=== PATIENT | female | born 1945 | race Caucasian/White ===

== ENCOUNTER → 2018-02-25 13:33 | Outpatient (CLI) | payer MEDICARE, BC, SELFPAY ==
--- NOTE | 2018-02-25 | DI.RAD.S_ITS ---
PROCEDURE: FL ARTHROGRAM SHOULDER LT INDICATIONS: LEFT SHOULDER PAIN TECHNIQUE: The indications, alternatives, benefits, risks, and complications of the procedure were explained to the patient. Written informed consent was obtained and placed in the chart. The shoulder was examined fluoroscopically and a site for needle placement chosen for entry into the glenohumeral joint from an anterior approach. The skin was prepped and draped in a sterile fashion, and 1% lidocaine infiltrated from skin down to joint capsule. A spinal needle was inserted into the glenohumeral joint, and a small amount of iodinated contrast media injected to confirm intra-articular placement of the needle tip. This was followed by approximately 12 mL dilute solution of a gadolinium containing MR contrast agent. The needle was removed and a dressing was applied. The patient was given postprocedural instructions and sent to the MR suite for MR imaging. FINDINGS: A single fluoroscopic spot image demonstrates intra-articular location of injected iodinated contrast. IMPRESSION: Successful fluoroscopically guided administration of dilute Gadolinium solution into the shoulder joint for MR arthrogram. It is noted that the humeral head is impacted and eroded. Prior trauma may explain this appearance. Dictated by: George Bryan M.D. on 02/25/2018 at 15:14 Approved by: George Bryan M.D. on 02/25/2018 at 15:15
--- NOTE | 2018-02-25 | DI.MRI.S_ITS ---
PROCEDURE: MR SHOULDER LT W CON INDICATIONS: Chronic left shoulder pain. The patient reports trauma to the left shoulder approximately 6 years ago from lifting injury (airplane door), and thereafter additional blunt trauma to the left shoulder approximately 2 years ago. She has not had plain film imaging of the shoulder over that period of time. There is, however, the MR shoulder evaluation by MR scanning 07/26/11. TECHNIQUE: After the administration of 12 mL of dilute intra-articular Gadolinium contrast, oblique coronal T1 and T2 spin echo with fat saturation, oblique sagittal T1 spin echo with and without fat saturation, oblique sagittal T2 fast spin echo with fat saturation, axial T1 spin echo with fat saturation through the shoulder. COMPARISON: [facility], , UP EXT [facility], 07[facility]26/2011[facility] 9:50[facility], 10:16. [facility], RF, FL ARTHROGRAM SHOULDER LT, 02/25/2018, 13:59. [facility], , SHOULDER INJECTION FOR MR/CT, 07/26/2011, 9:53. FINDINGS: Image quality: Excellent. Rotator cuff: The infraspinatus and subscapularis tendons appear intact throughout, but there is a lateral supraspinatus full-thickness rotator cuff tear without retraction of the supraspinatus muscle medially. This allows extravasation of injected intra-articular contrast into the overlying subacromial/subdeltoid bursal space. No rotator cuff muscle atrophy on sagittal images. Bones and bursae: There is a new finding of a impacted humeral head fracture, with underlying marrow space edema. This was not present during the 2011 MRI that was performed after the lifting injury discussed above in the indication section. Rather, this has occurred subsequently and likely during the blunt trauma reported 2 years ago. Reactive marrow edema is the likely cause for the current edema associated with degenerative osteoarthritic change at the glenohumeral joint and the altered morphology of the humeral head along its articular surfaces. There has been interval worsening of the acromioclavicular joint degeneration, now moderately severe, but with only mild impingement against the supraspinatus portion of the rotator cuff.. The acromion demonstrates conventional anatomy, without an os acromiale. Capsule and soft tissues: The labrum and glenohumeral ligaments appear intact. The long head of the biceps tendon demonstrates normal location and morphology. The rotator interval appears normal, without fibrosis. The coracohumeral ligament is of normal thickness. No intra-articular bodies. IMPRESSION: Humeral head impaction fracture does occurred, subsequent to the prior MRI, presumably related to the blunt trauma reported by the patient approximately 2 years ago. The marrow space edema involving the humeral head and neck is likely secondary to moderately severe post traumatic degenerative osteoarthritis, given her statement that no recent trauma has occurred. There is at least one small supraspinatus full-thickness rotator cuff tear allowing extravasation of injected contrast from the joint space into the overlying subacromial/subdeltoid bursal space. Mild interval worsening of previously present moderate a.c. joint osteoarthritis. Only mild impingement against the normal course of the supraspinatus tendon is noted. Supraspinatus rotator cuff tear is not associated with supraspinatus atrophy or retraction. Dictated by: George Bryan M.D. on 02/25/2018 at 15:15 Approved by: George Bryan M.D. on 02/25/2018 at 15:40
== END ==
PROVIDERS: Family Provider Family Medicine; Visit Provider Family Medicine
DX: M25.512 Pain in left shoulder (principal); G89.29 Other chronic pain; M19.012 Primary osteoarthritis, left shoulder; M75.42 Impingement syndrome of left shoulder; S42.292S Other displaced fracture of upper end of left humerus, sequela; S46.012S Strain of muscle(s) and tendon(s) of the rotator cuff of left shoulder, sequela
CPT/HCPCS: 73040; 73222; 77002

== ENCOUNTER → 2018-04-18 10:44 | Outpatient (CLI) | payer MEDICARE, BC, SELFPAY ==
--- NOTE | 2018-04-18 | DI.RAD.S_ITS ---
PROCEDURE: XR CHEST 2V INDICATIONS: COUGH TECHNIQUE: 2 views of the chest were acquired. COMPARISON: [facility], , CHEST 2 VIEW, 06/09/2008, 10:16. FINDINGS: Surgical changes and devices: None. Lungs and pleura: No pleural effusions or pneumothorax. Lungs are clear. Mediastinum: Mediastinal contours are normal. Heart size is normal. Bones and chest wall: No suspicious bony abnormalities. Soft tissues appear unremarkable. IMPRESSION: No acute cardiopulmonary disease. Dictated by: David Sands [facility] Interpreted: Aidee Musa MD on 04/18/2018 at 13:11 Approved by: Aidee Musa MD, PhD on 04/18/2018 at 14:47
== END ==
PROVIDERS: Family Provider Family Medicine; PCP Family Medicine; Visit Provider Family Medicine
DX: R05 Cough (principal)
CPT/HCPCS: 71046

== ENCOUNTER 2018-05-16 11:32 | Day surgery (SDC) | payer MEDICARE, BC, SELFPAY ==
[2018-05-16 12:04] VITALS: BP 87/56; PULSE 66; RESP 15; TEMP 36.1; O2SAT 97; BMI 26.5
--- NOTE | 2018-05-16 12:05 | PM.PREOP ---
Pre-operative Note Interval Note Pre-op Check: Yes History & Physical Reviewed by Physician and Yes Exam Performed Changes: No ASA Class (for procedural sedation): II
[2018-05-16] MEDS: SODIUM CHLORIDE 0.9% 1,000 ML 200 ML IV (12:10)
--- NOTE | 2018-05-16 12:10 | SUR.PREOP ---
pt brought in her own fleets enema, per v.o. dr. erendira cr for nurse to administer to patient at 1210
[2018-05-16] MEDS: MIDAZOLAM 5 MG/5 ML VIAL IV (12:56)
[2018-05-16] MEDS: fentaNYL 250 MCG/5 ML INJ IV (12:56)
--- NOTE | 2018-05-16 13:11 | PM.OP.ENDO ---
Operative Date/Time/Diagnoses Date of procedure: 05/16/18 Time of procedure: 13:11 Pre-op diagnosis: Rectal bleeding bright red Post-op diagnosis: same (Internal hemorrhoids. Sigmoid diverticulosis.) Procedure & Clinicians Study performed: Flexible sigmoidoscopy with 3 column hemorrhoid banding Same procedure as scheduled: Yes Indications: Blood per rectum. Patient had a recent colonoscopy. Therefore complete colonic exam was not performed. Surgeon: Ander Cunha Procedure Notes SCOAP/Timeout: Performed Procedure in detail: The patient was placed left lateral decubitus position underwent IV sedation directed by the surgeon consisting fentanyl and Versed cautiously applied. Digital exam was unremarkable. The scope was inserted advanced through it into the rectum and sigmoid. I reached the depth of 60 cm from the anal verge. I encountered formed stool at that point. Scope was gradually brought out. Patient was noted to have occasional diverticulosis of the sigmoid colon. On slowly pulling through the anal verge there were obvious hemorrhoids. Anoscope was inserted and circumferential exam perform. I chose the band 3 columns of hemorrhoids. One was in the left lateral 1 was a just adjacent to that toward the posterior midline and the 3rd was in the right posterior lateral location. The anoscope was removed the patient appeared to tolerate the procedure well. Scope withdrawal time: Not applicable Sedation minutes: 21 Findings: diverticulosis and internal hemorrhoids Specimen(s): none sent Complications: none Recommendations: Colonscopy in 3 years Follow up: as needed Disposition: PACU
[2018-05-16 13:12] VITALS: BP 97/58; PULSE 50; RESP 14; TEMP 36.2
[2018-05-16 13:29] VITALS: BP 95/63; PULSE 52; RESP 14; O2SAT 96
[2018-05-16 14:05] VITALS: BP 100/60; PULSE 58; RESP 16; TEMP 36.2; O2SAT 98
== END 2018-05-16 14:30 | disposition home or self-care (01) ==
PROVIDERS: Family Provider Family Medicine; PCP Family Medicine; Visit Provider Specialist
PROC: 0DJD8ZZ Inspection of Lower Intestinal Tract, Via Natural or Artificial Opening Endoscopic (ICD-10-PCS; CPT 45378; principal; 2018-05-16 12:45)
DX: K64.8 Other hemorrhoids (principal); K57.30 Diverticulosis of large intestine without perforation or abscess without bleeding; E78.00 Pure hypercholesterolemia, unspecified
CPT/HCPCS: 46221; J2250; J3010

== ENCOUNTER → 2019-03-24 15:33 | Outpatient (CLI) | payer MEDICARE, BC, SELFPAY ==
--- NOTE | 2019-03-24 | DI.CT.S_ITS ---
PROCEDURE: CT ABDOMEN PELVIS W CON INDICATIONS: Other specified symptoms and signs involving the abdomen and pelvis. Clinical history indicates a need to evaluate for abdominal or pelvic mass lesion. Signs and symptoms relative to the current clinical condition is new onset over the last 2 months a symptomatology suggestive of underlying mass. TECHNIQUE: After the administration of oral and intravenous contrast, 5 mm thick sections acquired from the diaphragms to the symphysis. 5 mm thick coronal and sagittal reformats were performed. For radiation dose reduction, the following was used: automated exposure control, adjustment of mA and/or kV according to patient size. COMPARISON: None. FINDINGS: Image quality: Excellent. ABDOMEN: Lung bases: Lung bases are clear. Heart size is normal. There is a moderately large hiatal hernia behind the heart without associated mass. Solid organs: Liver is normal in size and enhancement. Gallbladder is contracted, without evidence of internal calculus or inflammation.. Biliary system is non-dilated. Pancreas enhances normally. Spleen is normal in size and enhancement. No adrenal nodules. Kidneys are normal in size and enhancement, without hydronephrosis. Peritoneum and bowel: Stomach, small bowel, and colon loops are generally normal in caliber and wall thickness. There is, however, moderate colonic obstipation greater on the right than the left. Additionally, a segment of small bowel at the left midabdomen shows concentric mural thickening up to 1.3 cm through approximately a 15 cm length of small bowel, but without adjacent edema in the root of the mesentery or adenopathy elsewhere. No free fluid or air. Nodes and vessels: No retroperitoneal or mesenteric adenopathy. Aorta and inferior vena cava are normal in caliber. Miscellaneous: No ventral hernias. PELVIS: Genitourinary: Bladder wall thickness is normal. Miscellaneous: No inguinal hernias or adenopathy. Bones: No suspicious bony lesions. No vertebral body compression fractures. IMPRESSION: 1. Adenopathy is not found. A discrete pelvic mass is not identified. There is no sign of peritoneal carcinomatosis or ascites. 2. Colonic obstipation is present greater on the right than the left, a relatively nonspecific finding. A colonic mass lesion as cause of this finding is not identified. 3. There is a estimated 15 cm length segment of small bowel showing concentric mural thickening of the small bowel wall at the left midabdomen. This contains oral contrast through its lumen, and is not associated with abnormal distention of small bowel either proximal or distal to this loop. The appearance is unusual, unexpected, but can be produced by a persistent contraction through a segment of small bowel at time of CT scanning. If unusual symptoms persist this area could be further assessed by repeat CT scanning, or by small bowel follow-through examination with targeted imaging directed to that area. Physical examination assessment exactly to that area is also recommended. An alternative source of such an appearance would be adult onset Crohn's disease with segmental small bowel inflammatory change. Dictated by: George Bryan M.D. on 03/24/2019 at 17:41 Approved by: George Bryan M.D. on 03/24/2019 at 17:48
[2019-03-24 15:57] LABS: Add Manual Diff / Slide Review NO; Basophils Absolute Auto 100 /uL (0-100); Eosinophils Absolute Auto 200 /uL (0-450); Eosinophils Percent Auto 2.7 % (2-4); Hematocrit 40.7 % (36-46); Hemoglobin 13.9 g/dL (12.0-16.0); Lymphocytes Absolute Auto 1300 /uL (1100-4500); Mean Corpuscular HGB Conc 34.2 % (30-36); Mean Corpuscular Hemoglobin 30.2 PG (26-34); Mean Corpuscular Volume 88.4 fL (80-100); Monocytes Absolute Auto 800 /uL (0-900); Monocytes Percent Auto 9.7 % (3-14); Neutrophils Absolute Auto 6200 /uL (1500-7000); Neutrophils Percent Auto 71.6 % (50-75); Platelet Count 231 X10^3/uL (150-400); Red Blood Cell Count 4.61 X10^6/uL (4.0-5.2); Red Cell Distribution Width 14.5 % (11.6-14.8); White Blood Cell Count 8.6 X10^3/uL (4.5-11.0)
[2019-03-24 16:05] LABS: HEMOLYSIS < 15 (0-50); Potassium 4.3 mmol/L (3.4-5.1)
[2019-03-24 16:08] LABS: Alanine Aminotransferase 15 IU/L (9-52); Albumin 4.2 g/dL (3.5-5.0); Albumin Globulin Ratio 1.4 (1.0-2.8); Alkaline Phosphatase 71 U/L (38-126); Aspartate Aminotransferase 25 IU/L (14-36); Bilirubin Total 0.5 mg/dL (0.2-1.3); Blood Urea Nitrogen 24 mg/dL (7-17); Calcium 9.4 mg/dL (8.4-10.2); Carbon Dioxide 33 mmol/L (22-32); Chloride 99 mmol/L (98-107); Estimated Glomerular Filt Rate 43.7 mL/min (>60); Globulin 2.9 g/dL (1.7-4.1); Glucose 74 mg/dL (80-110); Sodium 139 mmol/L (137-145); Total Protein 7.1 g/dL (6.3-8.2)
== END ==
PROVIDERS: Family Provider Family Medicine; PCP Family Medicine; Visit Provider Family Medicine
DX: R19.8 Other specified symptoms and signs involving the digestive system and abdomen (principal); K44.9 Diaphragmatic hernia without obstruction or gangrene; K59.00 Constipation, unspecified
CPT/HCPCS: 36415; 74177; 80053; 85025; Q9967

== ENCOUNTER 2019-07-10 21:33 | Emergency (ER) | payer MEDICARE, SELFPAY ==
[2019-07-10 21:38] VITALS: BP 110/62; PULSE 56; RESP 20; TEMP 36.4; O2SAT 96
--- NOTE | 2019-07-10 21:59 | ED.ABDPAIN ---
HPI - Abdominal Pain General Chief Complaint: Abdominal Pain Stated Complaint: lower right abdominal pain Time Seen by Provider: 07/10/19 21:41 Source: patient Mode of arrival: Ambulatory Limitations: no limitations History of Present Illness HPI narrative: 74-year-old female nonsmoker with noncontributory medical history presents with her son in the chief complaint of a sudden onset right lower quadrant pain in the absence of other symptoms. She was in her normal state of health until this afternoon when she had this sudden onset of pain. She has had no nausea, vomiting or diarrhea. She denies any dysuria, frequency or urgency. She has had no fever or chills. Her pain is worse with motion or palpation and improves with rest. Related Data Home Medications Medication Instructions Recorded Confirmed ascorbic acid (vitamin C) 500 mg mg PO cap 04/23/18 04/23/18 capsule atorvastatin 10 mg tablet 10 mg PO DAILY 04/23/18 04/23/18 cholecalciferol (vitamin D3) 50 2,000 unit PO DAILY 04/23/18 04/23/18 mcg (2,000 unit) capsule diazepam 5 mg tablet 5 mg PO BEDTIME PRN 04/23/18 04/23/18 ferrous sulfate 325 mg (65 mg 325 mg PO DAILY tab 04/23/18 04/23/18 iron) tablet fluoxetine 20 mg capsule 20 mg PO DAILY 04/23/18 04/23/18 omeprazole 20 mg capsule,delayed 20 mg PO BID cap 04/23/18 04/23/18 release triamterene 37.5 1 cap PO DAILY 04/23/18 04/23/18 mg-hydrochlorothiazide 25 mg capsule vitamin B complex 1 tab PO DAILY 04/23/18 04/23/18 losartan 25 mg PO DAILY 05/16/18 05/16/18 Previous Rx's Medication Instructions Recorded diazepam 5 mg PO SEE INSTRUCTIONS PRN #30 05/21/16 atorvastatin [Lipitor] 10 mg PO HS #90 tab 07/03/16 fluoxetine 20 mg PO QDAY #90 cap 07/03/16 gabapentin [Neurontin] 300 mg PO SEE INSTRUCTIONS #1080 07/03/16 cap omeprazole 10 mg PO BID #180 cap 07/03/16 triamterene-hydrochlorothiazid 1 cap PO QDAY #90 cap 07/03/16 [Dyazide] Allergies Allergy/AdvReac Type Severity Reaction Status Date / Time No Known Allergies Allergy Uncoded 04/25/18 09:05 Review of Systems Constitutional Constitutional: Denies chills, Denies fatigue, Denies fever(s), Denies frequent falls, Denies lethargy and Denies weakness Eyes Eyes: Denies change in vision, Denies eye discharge, Denies irritation and Denies loss of vision ENT Ears, Nose, Mouth, and Throat: Denies change in voice, Denies dizziness, Denies neck pain, Denies sore throat and Denies throat swelling Cardiovascular Cardiovascular: Denies chest pain, Denies irregular heart rhythm, Denies lightheadedness, Denies palpitations, Denies dyspnea, Denies dyspnea on exertion and Denies orthopnea Respiratory Respiratory: Denies cough, Denies dyspnea, Denies dyspnea on exertion and Denies wheezing Gastrointestinal Gastrointestinal: Reports abdominal pain, Denies change in bowel habits, Denies diarrhea, Denies nausea and Denies vomiting Genitourinary Genitourinary: Denies hematuria, Denies flank pain, Denies urinary incontinence and Denies urinary urgency Musculoskeletal Musculoskeletal: Denies back pain, Denies muscle weakness, Denies neck pain, Denies numbness and Denies tingling Integumentary/Breasts Skin/Breast: Denies pruritus, Denies erythema, Denies rash and Denies wounds Neurologic Neurologic: Denies behavioral changes, Denies confusion, Denies dizziness, Denies frequent falls, Denies loss of vision, Denies numbness, Denies tingling and Denies weakness Psychiatric Psychiatric: Denies anxiety, Denies behavioral changes, Denies confusion, Denies depression, Denies homicidal ideation and Denies suicidal ideation Endocrine Endocrine: Denies fatigue, Denies flushing and Denies palpitations Hematologic/Lymphatic Hematologic/Lymphatic: Denies easy bruising Allergic/Immunologic Allergic/Immunologic: Denies urticaria, Denies throat swelling and Denies wheezing Patient History Medical History Elevated cholesterol (Chronic) Surgical History History of tonsillectomy Status post hysterectomy Family History Father Heart disease Grandfather Heart disease Mother Mental health problem Father Heart disease Mother Cancer Social History marital status: household members: friend(s) occupational status: unemployed Smoking Status: Never smoker alcohol intake: current substance use type: does not use Smoking Status: Never smoker alcohol intake frequency: holidays/special occasions only Substance Use Type: does not use Exam Narrative Exam Narrative: GENERAL: [74] year old patient appears stated age. Well-nourished, well-developed patient, in mild distress. HEAD: Atraumatic. Normocephalic. EYES: Pupils equal round and reactive. Extraocular motions intact. No scleral icterus. No injection or drainage. ENT: Nose without bleeding, purulent drainage. Throat without erythema, tonsillar hypertrophy or exudate. Airway patent. NECK: Trachea midline. Non tender CARDIOVASCULAR: Regular rate and rhythm without murmurs, gallops, or rubs. RESPIRATORY: Clear to auscultation. Breath sounds equal bilaterally. No wheezes, rales, or rhonchi. GASTROINTESTINAL: Abdomen soft, mild tenderness in the RLQ, no guarding or rebound. , nondistended. No obturator, Rovsing's, psoas or heel tap EXTREMITIES: No edema or joint tenderness. BACK: Nontender without deformity or crepitance. No flank tenderness. NEURO: AOx3. SKIN: No rash or erythema of visible areas Initial Vital Signs Initial Vital Signs: Vital Signs Temperature 97.6 F 07/10/19 21:38 Pulse Rate 56 L 07/10/19 21:38 Respiratory Rate 20 07/10/19 21:38 Blood Pressure 110/62 07/10/19 21:38 Pulse Oximetry 96 07/10/19 21:38 Course Orders Ordered: ED Orders 07/10/19 21:56 EKG-12 Lead Stat 07/10/19 22:01 Complete Blood Count AUTO DIFF Stat Comprehensive Metabolic Panel Stat Lipase Stat Partial Thromboplastin Time Stat Prothrombin Time INR Stat 07/10/19 22:05 Urine Microscopic Stat 07/10/19 22:18 CT abdomen pelvis w con Stat Discontinued Medications Sodium Chloride (Normal Saline 0.9%) 1,000 mls @ 1,000 mls/hr IV BOLUS ONE Stop: 07/10/19 23:56 Last Infusion: 07/11/19 00:15 Dose: 0 mls/hr Documented by: Admin: 07/10/19 23:01 Dose: 1,000 mls/hr Documented by: KELBY Vital Signs Vital signs: Vital Signs - 8 hr 07/10/19 21:38 07/10/19 23:03 07/11/19 00:28 Temperature 97.6 F Pulse Rate 56 L 53 L 54 L Respiratory Rate 20 16 Blood Pressure 110/62 134/60 Blood Pressure [Left Arm] 138/58 L Pulse Oximetry 96 100 95 MDM - Abdominal Pain Lab Data Result diagrams: 07/10/19 22:01 07/10/19 22:01 Labs: Lab Results 07/10/19 07/10/19 07/10/19 Range/Units 22:01 22:01 22:01 WBC 9.1 (4.5-11.0) X10^3/uL RBC 4.74 (4.0-5.2) X10^6/uL Hgb 14.2 (12.0-16.0) g/dL Hct 41.9 (36-46) % MCV 88.5 (80-100) fL MCH 30.0 (26-34) PG MCHC 33.9 (30-36) % RDW 13.9 (11.6-14.8) % Plt Count 256 (150-400) X10^3/uL Neut % (Auto) 71.3 (50-75) % Lymph % (Auto) 16.0 L (25-40) % [place] % (Auto) 9.7 (3-14) % Eos % (Auto) 2.1 (2-4) % Baso % (Auto) 0.9 (0-2) % Neut # (Auto) 6500 (8656-4632) /uL Lymph # (Auto) 1500 (1732-3745) /uL [place] # (Auto) 900 (0-900) /uL Eos # (Auto) 200 (0-450) /uL Baso # (Auto) 100 (0-100) /uL PT 11.1 (10.1-12.7) SECONDS INR 1.0 (0.9-1.3) APTT 38 H (26.4-36.2) SECONDS Sodium 136 L (137-145) mmol/L Potassium 3.8 (3.4-5.1) mmol/L Chloride 98 (98-107) mmol/L Carbon Dioxide 29 (22-32) mmol/L BUN 29 H (7-17) mg/dL Creatinine 1.30 H (0.52-1.04) mg/dL Estimated GFR 39.8 L (>60) mL/min BUN/Creatinine Ratio 22.3 H (6-22) Glucose 98 (80-110) mg/dL Calcium 9.5 (8.4-10.2) mg/dL Total Bilirubin 0.6 (0.2-1.3) mg/dL AST 29 (14-36) IU/L ALT 16 (<35) IU/L Alkaline Phosphatase 81 (38-126) U/L Total Protein 7.4 (6.3-8.2) g/dL Albumin 4.4 (3.5-5.0) g/dL Globulin 3.0 (1.7-4.1) g/dL Albumin/Globulin Ratio 1.5 (1.0-2.8) Lipase 131 (23-300) U/L Urine RBC (0-5/HPF) Urine WBC (0-5/HPF) Ur Squamous Epith Cells (0-5/HPF) Urine Bacteria (None) Ur Culture Indicated? 07/10/19 Range/Units 22:05 WBC (4.5-11.0) X10^3/uL RBC (4.0-5.2) X10^6/uL Hgb (12.0-16.0) g/dL Hct (36-46) % MCV (80-100) fL MCH (26-34) PG MCHC (30-36) % RDW (11.6-14.8) % Plt Count (150-400) X10^3/uL Neut % (Auto) (50-75) % Lymph % (Auto) (25-40) % [place] % (Auto) (3-14) % Eos % (Auto) (2-4) % Baso % (Auto) (0-2) % Neut # (Auto) (4198-7989) /uL Lymph # (Auto) (4816-3474) /uL [place] # (Auto) (0-900) /uL Eos # (Auto) (0-450) /uL Baso # (Auto) (0-100) /uL PT (10.1-12.7) SECONDS INR (0.9-1.3) APTT (26.4-36.2) SECONDS Sodium (137-145) mmol/L Potassium (3.4-5.1) mmol/L Chloride (98-107) mmol/L Carbon Dioxide (22-32) mmol/L BUN (7-17) mg/dL Creatinine (0.52-1.04) mg/dL Estimated GFR (>60) mL/min BUN/Creatinine Ratio (6-22) Glucose (80-110) mg/dL Calcium (8.4-10.2) mg/dL Total Bilirubin (0.2-1.3) mg/dL AST (14-36) IU/L ALT (<35) IU/L Alkaline Phosphatase (38-126) U/L Total Protein (6.3-8.2) g/dL Albumin (3.5-5.0) g/dL Globulin (1.7-4.1) g/dL Albumin/Globulin Ratio (1.0-2.8) Lipase (23-300) U/L Urine RBC 0-1/hpf (0-5/HPF) Urine WBC 0-1/hpf (0-5/HPF) Ur Squamous Epith Cells 0-1 /hpf (0-5/HPF) Urine Bacteria None seen (None) Ur Culture Indicated? Cult not indicated Point of care testing: Urine Dip Bedside Urine Glucose Negative Bedside Urine Bilirubin - Negative Bedside Urine Ketone - Negative Urine Specific [place] 1.015 Bedside Urine Occult Blood +/- Bedside Urine pH 6.0 Bedside Urine Protein - Negative Bedside Urine Urobilinogen - Negative Bedside Urine Nitrite - Negative Bedside Urine Leukocytes +/- 15 Esterase MDM Narrative Medical decision making narrative: Multiple etiologies considered including appendicitis which is thought less likely given rapid onset of symptoms, lack of elevated white count or fever and lack of findings on imaging. Kidney stone considered but thought less likely given reproducibility of pain and lack of findings on CT. Constipation and bowel obstruction considered, obstruction ruled out on imaging. Patient did has some leukocytes on urine POC but denied any urinary complaints and had a clean urinalysis. Patient given return precautions and had questions answered to her apparent satisfaction. Discharge Plan Departure Patient Disposition: Home Clinical Impression: Abdominal pain Qualifiers: Abdominal location: right lower quadrant Qualified Code(s): R10.31 - Right lower quadrant pain Discharge Date/Time: 07/11/19 00:29 Instructions: DI for Abdominal Pain-Adult Activity Restrictions/Additional Instructions: *You have been diagnosed with [acute abdominal pain, right lower quadrant. No evidence of kidney stone or appendicitis] *What to do: *Take medications as directed *Follow up with your primary care provider in 2-3 days, call for an appointment. Let them know you were seen in the Emergency Department and that we ask that you be seen in follow up *Return to ER if you should have any new, worsening or concerning symptoms Prescriptions: No Action diazepam 5 MG tablet 5 mg PO SEE INSTRUCTIONS PRNQty: 30 RF: 0 atorvastatin [Lipitor] 10 MG tablet 10 mg PO HS Qty: 90 RF: 3 triamterene-hydrochlorothiazid [Dyazide] 37.5 MG/25 MG capsule 1 cap PO QDAY Qty: 90 RF: 3 omeprazole 10 MG capsule,delayed release(DR/EC) 10 mg PO BID Qty: 180 RF: 3 gabapentin [Neurontin] 300 MG capsule 300 mg PO SEE INSTRUCTIONS Qty: 1080 RF: 3 fluoxetine 20 MG capsule 20 mg PO QDAY Qty: 90 RF: 3 diazepam 5 mg tablet 5 mg PO BEDTIME PRNRF: 0 ferrous sulfate 325 mg (65 mg iron) tablet 325 mg PO DAILY RF: 0 fluoxetine 20 mg capsule 20 mg PO DAILY RF: 0 atorvastatin [Lipitor] 10 mg tablet 10 mg PO DAILY RF: 0 omeprazole 20 mg capsule,delayed release(DR/EC) 20 mg PO BID RF: 0 triamterene-hydrochlorothiazid 37.5-25 mg capsule 1 cap PO DAILY RF: 0 vitamin B complex [B Complex-Vitamin B12] tablet 1 tab PO DAILY RF: 0 ascorbic acid (vitamin C) 500 mg capsule PO RF: 0 cholecalciferol (vitamin D3) 2,000 unit capsule 2,000 unit PO DAILY RF: 0 losartan 25 mg Tablet 25 mg PO DAILY RF: 0 Referrals: Albert Duke [Primary Care Provider] -
[2019-07-10 22:17] LABS: Prothrombin Time 11.1 SECONDS (10.1-12.7)
--- NOTE | 2019-07-10 22:18 | DI.CT.S_ITS ---
PROCEDURE: CT ABDOMEN PELVIS W CON INDICATIONS: severe RLQ pain TECHNIQUE: After the administration of intravenous contrast, 5 mm thick sections acquired from the diaphragm to the symphysis. 5 mm coronal and sagittal reformats were acquired. For radiation dose reduction, the following was used: automated exposure control, adjustment of mA and/or kV according to patient size. COMPARISON: [facility], CT, CT ABDOMEN PELVIS W CON, 03/24/2019, 16:33. FINDINGS: Image quality: Excellent. ABDOMEN: Lung bases: Lung bases are clear. Heart size is normal. There is a moderate hiatal hernia. Solid organs: Liver is normal in size and enhancement. Gallbladder wall does not appear thickened. Biliary system is non dilated. Pancreas enhances normally. Spleen is normal in size and enhancement. No adrenal nodules. Kidneys demonstrate normal size and enhancement, without hydronephrosis. An 9 mm water density exophytic cyst can be seen laterally on the left. Peritoneum and bowel: In this patient with this given history, scrutiny is given to the right lower quadrant and the appendix. No focal right lower quadrant inflammatory changes can be seen. A moderate amount of stool can be seen within the proximal colon. Bowel loops demonstrate normal wall thickness and caliber. The previously seen small bowel thickening has resolved. No free fluid or air. Nodes and vessels: No retroperitoneal or mesenteric adenopathy by size criteria. Aorta and inferior vena cava are normal in size. Miscellaneous: No ventral hernias. PELVIS: Genitourinary: Bladder wall thickness is normal. This patient is status post hysterectomy. No adnexal masses are seen. Miscellaneous: No inguinal hernias or adenopathy. Bones: No suspicious bony lesions. No vertebral body compression fractures. Age-appropriate bony degenerative changes are seen, which are most prominent involving the lower lumbar spine. Mild dextroconvex scoliotic curvature is noted. IMPRESSION: No appendix can be seen, either normal or abnormal. No focal right lower quadrant inflammatory changes are seen. There is a moderate amount of stool seen within the colon. Please correlate with an underlying history of constipation. Resolution of the previously seen focal small bowel thickening. Incidental note is made of: Moderate hiatal hernia Simple left renal cyst Hysterectomy Dextroconvex scoliotic curvature Note: No significant discrepancy from the preliminary report. Dictated by: Alejandro Heath M.D. on 07/11/2019 at 8:36 Approved by: Alejandro Heath M.D. on 07/11/2019 at 8:41
[2019-07-10 22:19] LABS: PTT Partial Thromboplastin Tim 38 SECONDS (26.4-36.2)
[2019-07-10 22:20] LABS: Alanine Aminotransferase 16 IU/L (<35); Albumin 4.4 g/dL (3.5-5.0); Albumin Globulin Ratio 1.5 (1.0-2.8); Alkaline Phosphatase 81 U/L (38-126); Aspartate Aminotransferase 29 IU/L (14-36); BUN Creatinine Ratio 22.3 (6-22); Bilirubin Total 0.6 mg/dL (0.2-1.3); Blood Urea Nitrogen 29 mg/dL (7-17); Calcium 9.5 mg/dL (8.4-10.2); Carbon Dioxide 29 mmol/L (22-32); Chloride 98 mmol/L (98-107); Estimated Glomerular Filt Rate 39.8 mL/min (>60); Glucose 98 mg/dL (80-110); HEMOLYSIS < 15 (0-50); Lipase 131 U/L (23-300); Potassium 3.8 mmol/L (3.4-5.1); Sodium 136 mmol/L (137-145); Total Protein 7.4 g/dL (6.3-8.2)
[2019-07-10 22:24] LABS: Add Manual Diff / Slide Review NO; Basophils Absolute Auto 100 /uL (0-100); Basophils Percent Auto 0.9 % (0-2); Eosinophils Absolute Auto 200 /uL (0-450); Eosinophils Percent Auto 2.1 % (2-4); Hematocrit 41.9 % (36-46); Hemoglobin 14.2 g/dL (12.0-16.0); Lymphocytes Absolute Auto 1500 /uL (1100-4500); Mean Corpuscular HGB Conc 33.9 % (30-36); Mean Corpuscular Volume 88.5 fL (80-100); Monocytes Absolute Auto 900 /uL (0-900); Monocytes Percent Auto 9.7 % (3-14); Neutrophils Absolute Auto 6500 /uL (1500-7000); Neutrophils Percent Auto 71.3 % (50-75); Platelet Count 256 X10^3/uL (150-400); Red Blood Cell Count 4.74 X10^6/uL (4.0-5.2); Red Cell Distribution Width 13.9 % (11.6-14.8); White Blood Cell Count 9.1 X10^3/uL (4.5-11.0)
[2019-07-10 22:29] LABS: Bacteria Urine None Seen
[2019-07-10 22:44] LABS: Culture Indicated Urine Cult Not Indicated; RBC Urine 0-1/HPF (0-5/HPF); Squamous Epithelial Cell Urine 0-1 /HPF (0-5/HPF); WBC Urine 0-1/HPF (0-5/HPF)
[2019-07-10] MEDS: SODIUM CHLORIDE 0.9% 1,000 ML 1000 ML IV (23:01)
[2019-07-10 23:03] VITALS: BP 138/58; PULSE 53; RESP 16; O2SAT 100
[2019-07-11 00:28] VITALS: BP 134/60; PULSE 54; O2SAT 95
== END 2019-07-11 00:29 | disposition home or self-care (01) ==
PROVIDERS: Emergency Provider Emergency Medicine; Family Provider Family Medicine; PCP Family Medicine
DX: R10.31 Right lower quadrant pain (principal)
CPT/HCPCS: 36415; 74177; 80053; 81003; 81015; 83690; 85025; 85610; 85730; 96360; 99284